=== PATIENT | female | born 1940 | race Caucasian/White ===

== ENCOUNTER 2022-12-22 10:26 | Observation (INO) | payer MEDICARE, OTHER ==
[2022-12-22] MEDS ORDERED: Sodium Chloride 0.9% 10 ML Syringe FLUSH PRN (11:14)
[2022-12-22 12:10] LABS: BASOPHILS ABSOLUTE AUTO 0.01 K/uL (0.00-0.20); BASOPHILS PERCENT AUTO 0.1 % (0.0-2.0); EOSINOPHILS ABSOLUTE AUTO 0.03 K/uL (0.00-0.50); EOSINOPHILS PERCENT AUTO 0.2 % (0.0-5.0); HEMATOCRIT 37.4 % (34.0-46.0); HEMOGLOBIN 12.9 g/dL (11.7-15.5); LYMPHOCYTES PERCENT AUTO 10.6 % (10.0-50.0); MEAN CORPUSCULAR HEMOGLOBIN 31.2 pg (28.2-33.3); MEAN CORPUSCULAR HGB CONC 34.5 g/dL (31.7-36.0); MEAN CORPUSCULAR VOLUME 90.3 fL (84.0-98.0); MONOCYTES ABSOLUTE AUTO 1.09 K/uL (0.00-1.00); MONOCYTES PERCENT AUTO 8.2 % (2.0-14.0); NEUTROPHILS PERCENT AUTO 80.9 % (45.0-80.0); PLATELET COUNT,PLT 167 K/uL (150-350); RED BLOOD CELL COUNT 4.14 M/uL (3.77-5.09); RED CELL DISTRIBUTION WIDTH 13.5 % (11.2-14.1); WHITE BLOOD CELL COUNT,WBC 13.2 K/uL (4.0-10.2)
[2022-12-22 12:25] LABS: CORONAVIRUS COVID-19 NAA NEGATIVE (NEGATIVE); INFLUENZA A NAA NEGATIVE (NEGATIVE); INFLUENZA B NAA NEGATIVE (NEGATIVE); RESPIRATORY SYNCYTIAL VIR NAA NEGATIVE (NEGATIVE)
[2022-12-22 12:33] LABS: ALANINE AMINOTRANSFERASE,ALT 18 U/L (12-78); ALBUMIN 3.6 g/dL (3.4-5.0); ALKALINE PHOSPHATASE 67 IU/L (46-116); ASPARTATE AMNIOTRANSFERASE,AST 20 U/L (15-37); BILIRUBIN TOTAL 0.7 mg/dL (0.2-1.0); BLOOD UREA NITROGEN,BUN 15 mg/dL (7-18); CALCIUM 8.7 mg/dL (8.5-10.1); CHLORIDE,CL 91 mmol/L (98-107); CREATINE KINASE,CK 86 U/L (26-308); GLUCOSE RANDOM 128 mg/dL (70-99); POTASSIUM,K 4.3 mmol/L (3.5-5.1); PRO B-TYPE NATRIUR PEPT,BNPPRO 745 pg/mL (0-125); PROTEIN TOTAL,TP 7.3 g/dL (6.4-8.2); SODIUM,NA 125 mmol/L (136-145)
[2022-12-22 12:49] LABS: ANION GAP 16.3 meq/L (7-15); ESTIMATED GFR 56 mL/min (>=60)
[2022-12-22] MEDS ORDERED: Sodium Chloride 3% 200 ML IV SCH (13:15)
[2022-12-22] MEDS ORDERED: Sodium Chloride 0.9% 500 ML IV ONE (13:43)
[2022-12-22] MEDS ORDERED: Sodium Chloride 3% 100 ML IV SCH (13:45)
[2022-12-22 15:33] LABS: BILIRUBIN,URINE NEGATIVE (NEGATIVE); COLOR,URINE YELLOW; GLUCOSE,URINE NEGATIVE (NEGATIVE); KETONES,URINE NEGATIVE (NEGATIVE); LEUKOCYTE ESTERASE,URINE LARGE (NEGATIVE); NITRITE,URINE POSITIVE (NEGATIVE); OCCULT BLOOD,URINE TRACE-LYSED (NEGATIVE); PH,URINE 6.5 (5.0-9.0); PROTEIN,URINE NEGATIVE (NEGATIVE); UROBILINOGEN,URINE 0.2 E.U./dL (0.2-1.0)
[2022-12-22 15:51] LABS: APPEARANCE,URINE SLIGHTLY CLOUDY; BACTERIA,URINE MANY /HPF (NONE TO FEW); EPITHELIAL CELLS,URINE NOT SEEN /LPF; RBC,URINE 0-5 /HPF
[2022-12-22] MEDS ORDERED: Levofloxacin 500 MG Tab PO ONE (17:47)
[2022-12-22 17:55] LABS: ANION GAP 15.2 meq/L (7-15); BLOOD UREA NITROGEN,BUN 12 mg/dL (7-18); CALCIUM 8.4 mg/dL (8.5-10.1); CARBON DIOXIDE,CO2 20.9 mmol/L (21.0-32.0); CHLORIDE,CL 92 mmol/L (98-107); CREATININE 0.85 mg/dL (0.51-1.17); ESTIMATED GFR 68 mL/min (>=60); GLUCOSE RANDOM 120 mg/dL (70-99); POTASSIUM,K 4.1 mmol/L (3.5-5.1)
[2022-12-22 17:58] LABS: SODIUM,NA 124 mmol/L (136-145)
[2022-12-22] MEDS ORDERED: PHENYLEPHRINE HCL 10 MG PO PRN (19:07)
[2022-12-22] MEDS ORDERED: Albuterol 6.7 GM Inhaler INH PRN (19:07)
[2022-12-22] MEDS ORDERED: XYLITOL BUCCAL PRN (19:07)
[2022-12-22] MEDS ORDERED: Levofloxacin 500 MG Tab PO SCH (19:15)
[2022-12-22] MEDS ORDERED: Sodium Chloride 0.9% 1,000 ML IV SCH (19:15)
[2022-12-22] MEDS: Acetaminophen 650 MG Tab.ER PO SCH (20:55)
[2022-12-22] MEDS: atorvaSTATin 20 MG Tab PO SCH (20:56)
[2022-12-22] MEDS: Carvedilol 6.25 MG Tab PO SCH (20:56)
[2022-12-22] MEDS: Omeprazole 20 MG Cap.CR PO SCH (20:57)
[2022-12-22] MEDS: Formoterol/Mometasone 100-5 MCG 8.8 GM Inhaler IH SCH (20:57)
[2022-12-22] MEDS: guaiFENesin/Dextromethorphan 100-10 MG/5 ML Soln 10 ML Cup PO PRN (21:04)
[2022-12-22] MEDS ORDERED: diphenhydrAMINE 50 MG/ML SDV IVPUSH ONE (21:48)
[2022-12-23 08:00] LABS: CALCIUM 8.3 mg/dL (8.5-10.1); CREATININE 0.82 mg/dL (0.51-1.17); EST CRCL DRUG DOSING (CG) 45.68 mL/min; POTASSIUM,K 4.1 mmol/L (3.5-5.1)
[2022-12-23 08:01] LABS: ANION GAP 14.1 meq/L (7-15)
[2022-12-23] MEDS: Losartan 50 MG Tab PO SCH (08:50)
[2022-12-23] MEDS: Cranberry 500 MG Cap PO SCH (08:51)
[2022-12-23] MEDS: Carvedilol 6.25 MG Tab PO SCH ×2 (08:51→19:25)
[2022-12-23] MEDS: Omeprazole 20 MG Cap.CR PO SCH ×2 (08:52→21:14)
[2022-12-23] MEDS: Oxybutynin 5 MG Tab.ER PO SCH (08:52)
[2022-12-23] MEDS: Acetaminophen 650 MG Tab.ER PO SCH ×2 (08:53→21:14)
[2022-12-23] MEDS: Spironolactone 25 MG Tab PO SCH (08:55)
[2022-12-23] MEDS: Cholecalciferol (Vitamin D3) 25 MCG Tab PO SCH (08:55)
[2022-12-23] MEDS: Multivitamin Tab PO SCH (08:56)
[2022-12-23] MEDS: Citalopram 20 MG Tab PO SCH (08:56)
[2022-12-23] MEDS: Formoterol/Mometasone 100-5 MCG 8.8 GM Inhaler IH SCH ×2 (08:59→19:25)
[2022-12-23] MEDS: guaiFENesin/Dextromethorphan 100-10 MG/5 ML Soln 10 ML Cup PO PRN ×2 (13:53→20:34)
[2022-12-23] MEDS ORDERED: Levofloxacin 500 MG Tab PO SCH (18:00)
[2022-12-23] MEDS: atorvaSTATin 20 MG Tab PO SCH (19:25)
[2022-12-24] MEDS ORDERED: diphenhydrAMINE 25 MG Cap PO PRN (01:45)
[2022-12-24 07:43] LABS: CALCIUM 8.5 mg/dL (8.5-10.1); CREATININE 0.78 mg/dL (0.51-1.17); EST CRCL DRUG DOSING (CG) 48.02 mL/min; POTASSIUM,K 4.2 mmol/L (3.5-5.1)
[2022-12-24 07:46] LABS: BASOPHILS ABSOLUTE AUTO 0.01 K/uL (0.00-0.20); BASOPHILS PERCENT AUTO 0.1 % (0.0-2.0); EOSINOPHILS ABSOLUTE AUTO 0.06 K/uL (0.00-0.50); EOSINOPHILS PERCENT AUTO 0.8 % (0.0-5.0); HEMATOCRIT 32.5 % (34.0-46.0); HEMOGLOBIN 11.2 g/dL (11.7-15.5); LYMPHOCYTES ABSOLUTE AUTO 1.53 K/uL (0.50-3.50); LYMPHOCYTES PERCENT AUTO 21.3 % (10.0-50.0); MEAN CORPUSCULAR HEMOGLOBIN 31.4 pg (28.2-33.3); MEAN CORPUSCULAR HGB CONC 34.5 g/dL (31.7-36.0); MONOCYTES ABSOLUTE AUTO 0.67 K/uL (0.00-1.00); MONOCYTES PERCENT AUTO 9.3 % (2.0-14.0); NEUTROPHILS PERCENT AUTO 68.5 % (45.0-80.0); PLATELET COUNT,PLT 163 K/uL (150-350); RED BLOOD CELL COUNT 3.57 M/uL (3.77-5.09); RED CELL DISTRIBUTION WIDTH 13.3 % (11.2-14.1); WHITE BLOOD CELL COUNT,WBC 7.2 K/uL (4.0-10.2)
[2022-12-24 07:59] LABS: ANION GAP 13.2 meq/L (7-15)
[2022-12-24] MEDS: Cholecalciferol (Vitamin D3) 25 MCG Tab PO SCH (09:44)
[2022-12-24] MEDS: Acetaminophen 650 MG Tab.ER PO SCH (09:44)
[2022-12-24] MEDS: Multivitamin Tab PO SCH (09:45)
[2022-12-24] MEDS: Oxybutynin 5 MG Tab.ER PO SCH (09:45)
[2022-12-24] MEDS: Omeprazole 20 MG Cap.CR PO SCH (09:46)
[2022-12-24] MEDS: Citalopram 20 MG Tab PO SCH (09:46)
[2022-12-24] MEDS: Spironolactone 25 MG Tab PO SCH (09:46)
[2022-12-24] MEDS: Losartan 50 MG Tab PO SCH (09:46)
[2022-12-24] MEDS: Cranberry 500 MG Cap PO SCH (09:46)
[2022-12-24] MEDS: Carvedilol 6.25 MG Tab PO SCH (09:48)
[2022-12-24] MEDS: Formoterol/Mometasone 100-5 MCG 8.8 GM Inhaler IH SCH (09:49)
[2022-12-24] MEDS ORDERED: Take Home: Levofloxacin 500 MG Tab, 3 Tab Pack PO ONE (09:51)
== END 2022-12-24 11:20 ==
LOC: LL.ED 10:26 → LL.MS 18:45
PROVIDERS: ADMIT Emergency Medicine; ATTEND Emergency Medicine
DX: E87.1 Hypo-osmolality and hyponatremia (principal); N30.00 Acute cystitis without hematuria; D72.829 Elevated white blood cell count, unspecified; I44.7 Left bundle-branch block, unspecified; Z88.2 Allergy status to sulfonamides; Z79.899 Other long term (current) drug therapy; Z20.822 Contact with and (suspected) exposure to COVID-19
CPT/HCPCS: 0241U; 36415; 71046; 80048; 80053; 81001; 82550; 83605; 83880; 84484; 85025; 87086; 87088; 87186; 93005; 93010; 96360; 96361; 99285-25; A9270-GY; G0378; J7030; J7040

== ENCOUNTER 2023-08-02 19:54 | Inpatient (IN) | payer MEDICARE ==
[2023-08-02 20:27] LABS: APPEARANCE,URINE CLEAR; BILIRUBIN,URINE NEGATIVE (NEGATIVE); COLOR,URINE YELLOW; GLUCOSE,URINE NEGATIVE (NEGATIVE); KETONES,URINE 15 mg/dL (NEGATIVE); LEUKOCYTE ESTERASE,URINE NEGATIVE (NEGATIVE); NITRITE,URINE NEGATIVE (NEGATIVE); OCCULT BLOOD,URINE NEGATIVE (NEGATIVE); PROTEIN,URINE 30 mg/dL (NEGATIVE); UROBILINOGEN,URINE 0.2 E.U./dL (0.2-1.0)
[2023-08-02 20:31] LABS: BASOPHILS ABSOLUTE AUTO 0.03 K/uL (0.00-0.20); BASOPHILS PERCENT AUTO 0.3 % (0.0-2.0); EOSINOPHILS ABSOLUTE AUTO 0.08 K/uL (0.00-0.50); EOSINOPHILS PERCENT AUTO 0.8 % (0.0-5.0); HEMOGLOBIN 14.1 g/dL (11.7-15.5); LYMPHOCYTES ABSOLUTE AUTO 1.98 K/uL (0.50-3.50); LYMPHOCYTES PERCENT AUTO 19.8 % (10.0-50.0); MEAN CORPUSCULAR HEMOGLOBIN 31.1 pg (28.2-33.3); MEAN CORPUSCULAR HGB CONC 36.2 g/dL (31.7-36.0); MEAN CORPUSCULAR VOLUME 85.9 fL (84.0-98.0); NEUTROPHILS ABSOLUTE AUTO 6.91 K/uL (1.40-7.00); NEUTROPHILS PERCENT AUTO 69.1 % (45.0-80.0); PLATELET COUNT,PLT 199 K/uL (150-350); RED BLOOD CELL COUNT 4.54 M/uL (3.77-5.09); RED CELL DISTRIBUTION WIDTH 12.5 % (11.2-14.1)
[2023-08-02 20:47] LABS: ALANINE AMINOTRANSFERASE,ALT 20 U/L (12-78); ALBUMIN 3.9 g/dL (3.4-5.0); ALKALINE PHOSPHATASE 59 IU/L (46-116); ASPARTATE AMNIOTRANSFERASE,AST 20 U/L (15-37); BLOOD UREA NITROGEN,BUN 17 mg/dL (7-18); CALCIUM 8.9 mg/dL (8.5-10.1); CARBON DIOXIDE,CO2 22.8 mmol/L (21.0-32.0); CHLORIDE,CL 88 mmol/L (98-107); CREATININE 0.83 mg/dL (0.51-1.17); GLUCOSE RANDOM 117 mg/dL (70-99); POTASSIUM,K 3.8 mmol/L (3.5-5.1); PROTEIN TOTAL,TP 7.4 g/dL (6.4-8.2)
[2023-08-02 20:52] LABS: ESTIMATED GFR 70 mL/min (>=60); SODIUM,NA 122 mmol/L (136-145)
[2023-08-02 20:57] LABS: BACTERIA,URINE NOT SEEN /HPF (NONE TO FEW); EPITHELIAL CELLS,URINE FEW /LPF; MUCUS,URINE FEW /LPF (NEGATIVE); WBC,URINE 0-5 /HPF
[2023-08-02 21:22] LABS: CORONAVIRUS COVID-19 NAA NEGATIVE (NEGATIVE); INFLUENZA A NAA NEGATIVE (NEGATIVE); INFLUENZA B NAA NEGATIVE (NEGATIVE); RESPIRATORY SYNCYTIAL VIR NAA NEGATIVE (NEGATIVE)
[2023-08-02] MEDS ORDERED: Acetaminophen 325 MG Tab PO PRN (22:01)
[2023-08-02] MEDS: Sodium Chloride 3% 500 ML IV SCH (22:02)
[2023-08-02] MEDS ORDERED: Albuterol 6.7 GM Inhaler INH PRN (22:09)
[2023-08-03] MEDS: diphenhydrAMINE 25 MG Cap PO PRN (02:27)
[2023-08-03 06:46] LABS: BASOPHILS ABSOLUTE AUTO 0.02 K/uL (0.00-0.20); BASOPHILS PERCENT AUTO 0.2 % (0.0-2.0); EOSINOPHILS ABSOLUTE AUTO 0.11 K/uL (0.00-0.50); HEMATOCRIT 39.3 % (34.0-46.0); LYMPHOCYTES PERCENT AUTO 18.8 % (10.0-50.0); MEAN CORPUSCULAR HEMOGLOBIN 30.8 pg (28.2-33.3); MEAN CORPUSCULAR HGB CONC 35.6 g/dL (31.7-36.0); MEAN CORPUSCULAR VOLUME 86.6 fL (84.0-98.0); MONOCYTES ABSOLUTE AUTO 1.39 K/uL (0.00-1.00); MONOCYTES PERCENT AUTO 12.4 % (2.0-14.0); NEUTROPHILS ABSOLUTE AUTO 7.57 K/uL (1.40-7.00); NEUTROPHILS PERCENT AUTO 67.6 % (45.0-80.0); PLATELET COUNT,PLT 213 K/uL (150-350); RED BLOOD CELL COUNT 4.54 M/uL (3.77-5.09); RED CELL DISTRIBUTION WIDTH 12.6 % (11.2-14.1); WHITE BLOOD CELL COUNT,WBC 11.2 K/uL (4.0-10.2)
[2023-08-03 06:55] LABS: CALCIUM 8.9 mg/dL (8.5-10.1); CARBON DIOXIDE,CO2 22.8 mmol/L (21.0-32.0); CREATININE 0.86 mg/dL (0.51-1.17); EST CRCL DRUG DOSING (CG) 44.6 mL/min; MAGNESIUM 1.5 mg/dL (1.8-2.4); POTASSIUM,K 3.9 mmol/L (3.5-5.1)
[2023-08-03 06:56] LABS: ANION GAP 15.1 meq/L (7-15)
[2023-08-03] MEDS: Spironolactone 25 MG Tab PO SCH (08:10)
[2023-08-03] MEDS: Citalopram 20 MG Tab PO SCH (08:10)
[2023-08-03] MEDS: Losartan 50 MG Tab PO SCH (08:10)
[2023-08-03] MEDS: Omeprazole 20 MG Cap.CR PO SCH ×2 (08:11→19:18)
[2023-08-03] MEDS: Oxybutynin 5 MG Tab.ER PO SCH (08:12)
[2023-08-03] MEDS: cloNIDine 0.1 MG Tab PO SCH ×2 (08:13→19:17)
[2023-08-03] MEDS: Acetaminophen 650 MG Tab.ER PO SCH ×2 (08:14→19:17)
[2023-08-03] MEDS: Carvedilol 12.5 MG Tab PO SCH ×2 (08:15→19:18)
[2023-08-03] MEDS: Formoterol/Mometasone 100-5 MCG 8.8 GM Inhaler IH SCH ×2 (08:16→19:18)
[2023-08-03] MEDS ORDERED: Magnesium Sulfate/Water 2 GM in Premix Bag 1 BAG IV ONE (08:56)
[2023-08-03] MEDS: Sodium Chloride 3% 500 ML IV SCH ×2 (13:04→23:08)
[2023-08-03] MEDS ORDERED: Enoxaparin 40 MG/0.4 ML Syringe SUBCUT ONE (16:09)
[2023-08-03] MEDS ORDERED: atorvaSTATin 20 MG Tab PO SCH (20:00)
[2023-08-04] MEDS: diphenhydrAMINE 25 MG Cap PO PRN (00:16)
[2023-08-04 07:38] LABS: BASOPHILS ABSOLUTE AUTO 0.02 K/uL (0.00-0.20); BASOPHILS PERCENT AUTO 0.2 % (0.0-2.0); EOSINOPHILS ABSOLUTE AUTO 0.09 K/uL (0.00-0.50); HEMATOCRIT 35.6 % (34.0-46.0); HEMOGLOBIN 12.5 g/dL (11.7-15.5); LYMPHOCYTES ABSOLUTE AUTO 1.55 K/uL (0.50-3.50); MEAN CORPUSCULAR HEMOGLOBIN 30.9 pg (28.2-33.3); MEAN CORPUSCULAR HGB CONC 35.1 g/dL (31.7-36.0); MEAN CORPUSCULAR VOLUME 87.9 fL (84.0-98.0); MONOCYTES ABSOLUTE AUTO 1.05 K/uL (0.00-1.00); MONOCYTES PERCENT AUTO 11.5 % (2.0-14.0); NEUTROPHILS ABSOLUTE AUTO 6.39 K/uL (1.40-7.00); NEUTROPHILS PERCENT AUTO 70.3 % (45.0-80.0); PLATELET COUNT,PLT 167 K/uL (150-350); RED BLOOD CELL COUNT 4.05 M/uL (3.77-5.09); RED CELL DISTRIBUTION WIDTH 12.7 % (11.2-14.1); WHITE BLOOD CELL COUNT,WBC 9.1 K/uL (4.0-10.2)
[2023-08-04 08:05] LABS: CALCIUM 7.8 mg/dL (8.5-10.1); CARBON DIOXIDE,CO2 21.8 mmol/L (21.0-32.0); CREATININE 0.79 mg/dL (0.51-1.17); EST CRCL DRUG DOSING (CG) 48.55 mL/min; MAGNESIUM 1.7 mg/dL (1.8-2.4); POTASSIUM,K 3.7 mmol/L (3.5-5.1)
[2023-08-04 08:10] LABS: ANION GAP 14.9 meq/L (7-15)
[2023-08-04] MEDS: Carvedilol 12.5 MG Tab PO SCH (08:37)
[2023-08-04] MEDS: cloNIDine 0.1 MG Tab PO SCH (08:37)
[2023-08-04] MEDS: Acetaminophen 650 MG Tab.ER PO SCH (08:37)
[2023-08-04] MEDS: Oxybutynin 5 MG Tab.ER PO SCH (08:37)
[2023-08-04] MEDS: Spironolactone 25 MG Tab PO SCH (08:38)
[2023-08-04] MEDS: Citalopram 20 MG Tab PO SCH (08:38)
[2023-08-04] MEDS: Formoterol/Mometasone 100-5 MCG 8.8 GM Inhaler IH SCH (08:38)
[2023-08-04] MEDS: Omeprazole 20 MG Cap.CR PO SCH (08:38)
[2023-08-04] MEDS: Losartan 50 MG Tab PO SCH (08:38)
[2023-08-04] MEDS: Sodium Chloride 3% 500 ML IV SCH (10:29)
[2023-08-04] MEDS ORDERED: Enoxaparin 40 MG/0.4 ML Syringe SUBCUT ONE (13:00)
[2023-08-04] MEDS ORDERED: Magnesium Oxide 400 MG Tab PO ONE (13:24)
[2023-08-04 13:26] VITALS: BP 126/65; PULSE 64
== END 2023-08-04 15:50 | disposition home or self-care (01) | DRG 641 ==
LOC: LL.ED 19:54 → LL.MS 21:50
PROVIDERS: ADMIT Emergency Medicine; ATTEND Emergency Medicine
DX: E87.1 Hypo-osmolality and hyponatremia (principal); N39.0 Urinary tract infection, site not specified; E78.00 Pure hypercholesterolemia, unspecified; I10 Essential (primary) hypertension; K21.9 Gastro-esophageal reflux disease without esophagitis; J45.909 Unspecified asthma, uncomplicated; Z20.822 Contact with and (suspected) exposure to COVID-19; Z66 Do not resuscitate; I25.10 Atherosclerotic heart disease of native coronary artery without angina pectoris; M19.90 Unspecified osteoarthritis, unspecified site; F32.A Depression, unspecified; E55.9 Vitamin D deficiency, unspecified; N32.81 Overactive bladder; E78.5 Hyperlipidemia, unspecified; G47.00 Insomnia, unspecified; E83.42 Hypomagnesemia; Z79.899 Other long term (current) drug therapy; Z88.2 Allergy status to sulfonamides; Z79.51 Long term (current) use of inhaled steroids; Z85.41 Personal history of malignant neoplasm of cervix uteri; Z85.828 Personal history of other malignant neoplasm of skin; Z98.890 Other specified postprocedural states; Z11.52 Encounter for screening for COVID-19
CPT/HCPCS: 0241U; 36415; 80048; 80053; 81001; 83735; 84295; 85025; 97162-GP; 97165-GO; 97530-GO; 99285; A9270-GY; J1650; J3475; J7040